=== PATIENT | male | born 1965 | race Native Hawaiian/Other Pacific Islander ===

== ENCOUNTER 2018-02-10 07:58 | Outpatient (CLI) | payer OTHER ==
[2018-02-10 09:26] LABS: PLATELET COUNT 144 K/uL (142-355)
[2018-02-10 09:58] LABS: POTASSIUM 3.9 mmol/L (3.6-5.2)
== END 2018-02-10 21:03 | disposition home or self-care (01) ==
LOC: LABW 07:58
PROVIDERS: Internal Medicine
DX: R53.83 Other fatigue (principal); Z12.5 Encounter for screening for malignant neoplasm of prostate; R73.9 Hyperglycemia, unspecified; S20.219A Contusion of unspecified front wall of thorax, initial encounter
CPT/HCPCS: 36415; 80053; 80061; 83036; 84153; 84403; 84443; 85027

== ENCOUNTER 2018-08-04 13:26 | Outpatient (CLI) | payer OTHER | END 2018-08-04 20:58 | disposition home or self-care (01) | LOC: RAD 13:26 | DX: M25.512 Pain in left shoulder (principal) ==

== ENCOUNTER 2018-08-17 07:45 | Outpatient (CLI) | payer OTHER | END 2018-08-17 19:23 | disposition home or self-care (01) | LOC: LABW 07:45 | DX: M89.321 Hypertrophy of bone, right humerus (principal) | CPT/HCPCS: 36415; 84165; 84166 ==

== ENCOUNTER 2018-08-18 15:13 | Outpatient (CLI) | payer OTHER | END 2018-08-18 20:06 | disposition home or self-care (01) | LOC: CT 15:13 | DX: M75.92 Shoulder lesion, unspecified, left shoulder (principal) | CPT/HCPCS: 36415; 82565; 84520; Q9963 ==

== ENCOUNTER 2018-08-19 07:57 | Outpatient (CLI) | payer OTHER | END 2018-08-19 23:10 | disposition home or self-care (01) | LOC: NM 07:57 | DX: M89.8X2 Other specified disorders of bone, upper arm (principal) | CPT/HCPCS: A9561 ==

== ENCOUNTER 2019-02-02 12:43 | Emergency (ER) | payer OTHER ==
[~2019-02-02] VITALS: Ht 177.8 cm; Wt 121.1 kg
[2019-02-02 13:35] LABS: PLATELET COUNT 84 K/uL (142-355)
[2019-02-02 13:43] LABS: POTASSIUM 3.8 mmol/L (3.6-5.2)
[2019-02-02 16:00] VITALS: BP 125/62; TEMP 98.1
== END 2019-02-02 16:00 | disposition home or self-care (01) ==
LOC: ED 12:43
PROVIDERS: Emergency Medicine
DX: J18.9 Pneumonia, unspecified organism (principal); E11.9 Type 2 diabetes mellitus without complications; C90.00 Multiple myeloma not having achieved remission
CPT/HCPCS: 36415; 80053; 83036; 83735; 85027; 96360; 96365; 99284; J0696

== ENCOUNTER 2022-07-31 07:43 | Outpatient (CLI) | payer OTHER ==
[2022-07-31 08:03] LABS: PLATELET COUNT 64 K/uL (142-355)
== END 2022-07-31 19:17 | disposition home or self-care (01) ==
LOC: LABW 07:43
PROVIDERS: ATTEND Internal Medicine
DX: C90.00 Multiple myeloma not having achieved remission (principal); K76.0 Fatty (change of) liver, not elsewhere classified; R18.8 Other ascites; J90 Pleural effusion, not elsewhere classified
CPT/HCPCS: 36415; 80053; 82140; 82607; 82746; 85027

== ENCOUNTER 2022-09-12 08:37 | Outpatient (CLI) | payer OTHER | END 2022-09-12 19:38 | disposition home or self-care (01) | LOC: US 08:37 | PROVIDERS: ATTEND Internal Medicine | DX: K76.89 Other specified diseases of liver (principal); R18.8 Other ascites ==

== ENCOUNTER 2022-09-13 13:08 | Outpatient (CLI) | payer OTHER ==
[2022-09-13 14:03] LABS: PARTIAL THROMBOPLASTIN TIME 24.3 SECONDS (24.5-33.6)
== END 2022-09-13 19:38 | disposition home or self-care (01) ==
LOC: US 13:08
PROVIDERS: ATTEND Internal Medicine
DX: K76.89 Other specified diseases of liver (principal); R18.8 Other ascites; R07.89 Other chest pain
CPT/HCPCS: 36415; 85610; 85730

== ENCOUNTER 2022-11-08 14:06 | Outpatient (CLI) | payer OTHER | END 2022-11-08 17:00 | disposition home or self-care (01) | LOC: RESP 14:06 | PROVIDERS: ATTEND Radiology Diagnostic Radiology | DX: K75.81 Nonalcoholic steatohepatitis (NASH) (principal); Z79.899 Other long term (current) drug therapy ==

== ENCOUNTER 2022-11-12 08:32 | Outpatient (CLI) | payer OTHER | END 2022-11-12 20:08 | disposition home or self-care (01) | LOC: MRI 08:32 | PROVIDERS: ATTEND Radiology Diagnostic Radiology | DX: K75.81 Nonalcoholic steatohepatitis (NASH) (principal) | CPT/HCPCS: 36415; 82565; 84520; A9576 ==

== ENCOUNTER 2022-11-21 11:35 | Outpatient (CLI) | payer OTHER ==
[~2022-11-21] VITALS: Ht 180.3 cm; Wt 97.5 kg
[2022-11-21 11:45] VITALS: BP 93/53; TEMP 98.2
== END 2022-11-21 19:07 | disposition home or self-care (01) ==
LOC: INF 11:35
PROVIDERS: ATTEND Internal Medicine
DX: Z98.890 Other specified postprocedural states (principal)
CPT/HCPCS: 96365; 96366; P9047

== ENCOUNTER 2022-12-26 09:30 | Outpatient (CLI) | payer OTHER | END 2022-12-26 20:07 | disposition home or self-care (01) | LOC: US 09:30 | PROVIDERS: ATTEND Internal Medicine | DX: K76.89 Other specified diseases of liver (principal) ==

== ENCOUNTER 2023-01-03 13:58 | Outpatient (CLI) | payer OTHER ==
[~2023-01-03] VITALS: Ht 180.3 cm; Wt 99.8 kg
[2023-01-03 13:55] VITALS: BP 110/68; TEMP 98.1
== END 2023-01-03 22:31 | disposition home or self-care (01) ==
LOC: INF 13:58
PROVIDERS: ATTEND Internal Medicine
DX: E88.09 Other disorders of plasma-protein metabolism, not elsewhere classified (principal); K74.69 Other cirrhosis of liver
CPT/HCPCS: P9047

== ENCOUNTER 2023-01-04 13:11 | Outpatient (CLI) | payer OTHER ==
[~2023-01-04] VITALS: Ht 180.3 cm; Wt 99.8 kg
[2023-01-04 13:21] VITALS: BP 98/56; TEMP 98.5
[2023-01-04 14:30] VITALS: BP 91/55; TEMP 98.2
== END 2023-01-04 19:09 | disposition home or self-care (01) ==
LOC: INF 13:11
PROVIDERS: ATTEND Internal Medicine
DX: E88.09 Other disorders of plasma-protein metabolism, not elsewhere classified (principal); K74.69 Other cirrhosis of liver
CPT/HCPCS: 96365; P9047